=== PATIENT | female | born 1950 | race Hispanic/Latino ===

== ENCOUNTER → 2019-11-14 | Outpatient (CLI) | payer MEDICARE ==
[~2019-11-14] MED LIST: AMLO10TA7 PO; ATEN100T PO; CANA300T PO; GABA-531 PO; HYDR-4060 PO; LINA1TAB PO; LOSA1TAB42 PO; RANI150C4 PO; SIMV40TA59 PO
== END | disposition home or self-care (01) ==
LOC: RAH 14:50
PROVIDERS: ATTEND Family Medicine
DX: Z12.31 Encounter for screening mammogram for malignant neoplasm of breast (principal)
CPT/HCPCS: 77067

== ENCOUNTER → 2022-06-22 | Outpatient (CLI) | payer MEDICARE ==
[~2022-06-22] MED LIST changes: +AMLO-258 PO; -AMLO10TA7 PO; +GADOTERATE MEGLUMINE 10 MMOL/20 ML VIAL IV ONE
== END | disposition home or self-care (01) ==
LOC: RAH 10:48
PROVIDERS: ATTEND Surgery
DX: R22.31 Localized swelling, mass and lump, right upper limb (principal)
CPT/HCPCS: 73223; A9575

== ENCOUNTER → 2023-10-24 | Outpatient (CLI) | payer MEDICARE ==
[~2023-10-24] MED LIST changes: -GADOTERATE MEGLUMINE 10 MMOL/20 ML VIAL IV ONE
== END | disposition home or self-care (01) ==
LOC: RAH 14:37
PROVIDERS: ATTEND Family Medicine
DX: S62.002A Unspecified fracture of navicular [scaphoid] bone of left wrist, initial encounter for closed fracture (principal); M25.532 Pain in left wrist; X58.XXXA Exposure to other specified factors, initial encounter; Y93.89 Activity, other specified; Y92.89 Other specified places as the place of occurrence of the external cause; Y99.8 Other external cause status
CPT/HCPCS: 73200

== ENCOUNTER 2025-05-07 19:13 | Emergency (ER) | payer MEDICARE ==
[~2025-05-07] VITALS: Ht 154.9 cm; Wt 70.8 kg
--- NOTE | 2025-05-07 19:58 | EKG ---
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
[2025-05-07 20:05] LABS: IMMATURE GRANULOCYTE ABSOLUTE 0.03 K/uL (0-1); NUCLEATED RED BLOOD CELLS 0.0 % (0.0-0.19); PLATELET COUNT (AUTO) 136 K/uL (130-400); RED BLOOD CELL COUNT(AUTO) 4.14 MIL/uL (4.00-5.50); RED CELL DISTRIBUTION WIDTH 14.6 % (11.0-15.5); WHITE BLOOD COUNT (AUTO) 10.0 K/uL (4.8-10.8)
[2025-05-07 20:16] LABS: CREATININE 0.9 mg/dL (0.5-1.0); GLOMERULAR FILTR. RATE CALC 68.0 mL/min (>90); GLUCOSE,RANDOM 174.0 mg/dL (70-105); SODIUM SERUM 143.0 mmol/L (136-145); UREA NITROGEN, BLOOD 23.0 mg/dL (7-18)
[2025-05-07 20:33] LABS: ADD UA MICROSCOPIC YES; APPEARANCE,URINE CLEAR (CLEAR); GLUCOSE, URINE (UA) >=1000 mg/dL (NEGATIVE); LEUKOCYTE ESTERASE ,URINE NEGATIVE Leu/uL (NEGATIVE); NITRATE,URINE NEGATIVE (NEGATIVE); OCCULT BLOOD,URINE NEGATIVE (NEGATIVE)
[2025-05-07 20:35] LABS: SQUAMOUS EPITHELIAL CELL,UR RARE /HPF (0-2)
--- NOTE | 2025-05-07 21:10 | HMCIMG ---
EXAM: CR Chest, 1 View. CLINICAL HISTORY: rib pain left COMPARISON: None provided. FINDINGS: LUNGS: Mild left lower lobe airspace disease is concerning for an infectious and/or inflammatory process. PLEURAL SPACES: No pleural effusion or pneumothorax. MEDIASTINUM: The cardiomediastinal silhouette is within normal limits. BONES: No acute osseous abnormality. IMPRESSION: 1. Left lower lobe airspace disease, concerning for pneumonia/inflammatory process. /[place]
--- NOTE | 2025-05-07 21:22 | ERN ---
General Chief Complaint: Mechanical Fall Stated Complaint: FALL Time Seen by MD: 19:32 Source: patient History of Present Illness Initial Comments 74-year-old female who has a history of diabetes type 2, hypertension and hyperlipidemia comes in after a fall approximately 4 hours ago. She has obvious bruising on her left forehead left hand right wrist and left wrist. She also takes aspirin. The swelling in her left forehead has been increasing in size and she is here to have it evaluated. Patient states that she did not black out she had an diet experience vertigo she did not experience lightheadedness she was simply putting her belongings down on a table when suddenly she turned and fell. She has no history of loss of consciousness or seizures. She did fall a year ago when she tripped on a brick. Allergies: Coded Allergies: Penicillins (Unverified Allergy, Unknown, SEIZURES, 12/31/14) Uncoded Allergies: MANGOS (Allergy, Unknown, 12/31/14) Home Meds Reported Medications Linagliptin/Metformin HCl (Jentadueto 2.5 mg-500 mg Tab) 1 Each Tablet, 1 EACH PO BIDAC, TAB 15 Hydrocodone/Acetaminophen (Hydrocodon-Acetaminophen 5-325) 1 Each Tablet, 1 EACH PO AD PRN for PAIN, TAB 12/31/14 Gabapentin (Gabapentin) 300 Mg Capsule, 300 MG PO TID, CAP 12/31/14 Atenolol (Atenolol) 100 Mg Tablet, 100 MG PO AM, TAB 15 Ranitidine HCl (Ranitidine HCl) 150 Mg Capsule, 150 MG PO BID, CAP 15 Simvastatin (ZOCOR) 40 Mg Tablet, 40 MG PO HS, TAB 15 Amlodipine Besylate (Amlodipine Besylate) 10 Mg Tablet, 10 MG PO AM, TAB 15 Canagliflozin (Invokana) 300 Mg Tablet, 300 MG PO ACBKFST, TAB 15 Losartan/Hydrochlorothiazide (Losartan-Hctz 100-12.5 mg Tab) 1 Each Tablet, 1 EACH PO DAILY, TAB 12/31/14 Past Medical History Past Medical History: Diabetes-Type II, High Cholesterol, Hypertension Past Surgical History: Cholecystectomy, Surgical History Other: TUBAL LIGATION Constitutional: (-) chills, (-) diaphoresis, (-) fever, (-) malaise, (-) weakness, (-) other documentation EENTM: (-) eye pain, (-) blurred vision, (-) tearing, (-) double vision, (-) ear pain, (-) ear discharge, (-) nose pain, (-) nose congestion, (-) throat pain, (-) Throat swelling, (-) mouth pain, (-) tooth pain, (-) mouth swelling, (-) other documentation Respiratory: (-) cough, (-) orthopnea, (-) short of breath, (-) stridor, (-) wheezing, (-) other documentation Cardiovascular: (+) chest pain Gastrointestinal/Abdominal: (-) nausea, (-) vomiting, (-) diarrhea, (-) abdominal pain, (-) abdominal distention, (-) constipation, (-) rectal bleeding, (-) dark stool/melena, (-) other documentation Musculoskeletal: (-) Neck pain, (-) back pain, (-) Flank Pain, (-) joint pain, (-) joint swelling, (-) muscle pain, (-) muscle stiffness, (-) gout, (-) other documentation Skin: (+) contusion Physical Exam General Appearance: (+) no apparent distress Orientation: (+) alert, (+) oriented x 3 Head/Face Trauma: Yes Face Comment Left superior lateral hematoma. Eye: bilateral eye normal inspection, bilateral eye PERRL, bilateral eye EOMI Ear, Nose, Throat: (+) hearing grossly normal, (+) normal ENT inspection, (+) moist mucous membraine Neck: (+) normal inspection, (+) full range of motion, (+) non-tender Heart: (+) regular, (+) no gallop Vascular: (+) no edema, (+) normal peripheral pulse Gastrointestinal: (+) soft, (+) non-tender, (+) bowel sound present Extremities Comment Patient has a hematoma on distal left forearm and left thenar eminence. Patient has a right wrist hematoma. Good distal cap refill. Results Laboratory and Microbiology Lab and Micro Result Laboratory Tests Test 05/07/25 19:41 05/07/25 19:54 Urine Color YELLOW (YELLOW) Urine Appearance CLEAR (CLEAR) Urine pH 5.5 (5.0-8.0) Urine Specific [place] 1.038 (1.001-1.031) Urine Protein 10 mg/dL (NEGATIVE) H Urine Glucose (UA) >=1000 mg/dL (NEGATIVE) H Urine Ketones 10 mg/dL (NEGATIVE) H Urine Occult Blood NEGATIVE (NEGATIVE) Urine Nitrate NEGATIVE (NEGATIVE) Urine Bilirubin NEGATIVE mg/dL (NEGATIVE) Urine Urobilinogen 0.2 mg/dL (0.2-1.0) Urine Leukocyte Esterase NEGATIVE [place]/uL Urine RBC 0-1 /HPF (0-1) Urine WBC 2-5 /HPF (0-1) H Urine Squamous Epithelial Cells RARE /HPF (0-2) Urine Bacteria None /HPF (None Seen) Urine Hyaline Casts 2-5 /LPF (0-1 /LPF) H White Blood Count 10.0 K/uL (4.8-10.8) Red Blood Count 4.14 MIL/uL (4.00-5.50) Hemoglobin 12.5 g/dL (12.0-16.0) Hematocrit 38.7 % (36-48) Mean Corpuscular Volume 93.5 fL (79-99) Mean Corpuscular Hemoglobin 30.2 pg (27.0-33.0) Mean Corpuscular Hemoglobin Concent 32.3 g/dL (32.0-36.0) Red Cell Distribution Width 14.6 % (11.0-15.5) Platelet Count 136 K/uL (130-400) Mean Platelet Volume 12.3 fL (7.5-10.5) H Immature Granulocyte % (Auto) 0.3 % (0-1) Neutrophils (%) (Auto) 66.3 % (40.0-77.0) Lymphocytes (%) (Auto) 21.9 % (21.0-51.0) Monocytes (%) (Auto) 9.2 % (3.0-13.0) Eosinophils (%) (Auto) 2.0 % (0.0-8.0) Basophils (%) (Auto) 0.3 % (0.0-5.0) Neutrophils # (Auto) 6.6 K/uL (1.8-7.7) Lymphocytes # (Auto) 2.2 K/uL (1.0-4.8) Monocytes # (Auto) 0.9 K/uL (0.1-1.0) Eosinophils # (Auto) 0.20 K/uL (0.00-0.70) Basophils # (Auto) 0.03 K/uL (0.00-0.20) Absolute Immature Granulocyte (auto 0.03 K/uL (0-1) Nucleated Red Blood Cells 0.0 % (0.0-0.19) Sodium Level 143 mmol/L (136-145) Potassium Level 3.9 mmol/L (3.5-5.1) Chloride Level 105 mmol/L (101-111) Carbon Dioxide Level 25 mmol/L (21-32) Blood Urea Nitrogen 23 mg/dL (7-18) H Creatinine 0.9 mg/dL (0.5-1.0) Glomerular Filtration Rate Calc 68 mL/min (>90) Random Glucose 174 mg/dL (70-105) H Total Calcium 9.8 mg/dL (8.5-10.1) Troponin I High Sensitivity < 4 ng/L (4-50) L MDM MDM: Differential diagnosis: Simple hematomas while on aspirin, occult fractures, occult head bleed. Cause for the fall could be a stroke, and MS, dehydration, vertigo, Rationale: Tests considered and ordered secondary to shared decision making include: Previous outside records reviewed: Old ER visits. Risk of complication and/or morbidity or mortality of patient management: None Medications-Per medication reconciliation Need for hospitalization: Patient does meet criteria for hospitalization. Need for emergency major/minor surgery: No There are no social concerns with this patient. Prescription drug management Prescriptions will include symptomatic care Patient's prior external medical records from other ER visits were reviewed by me as indicated. Prior testing and results from previous visits were reviewed. Prior tests were taken into account with medical decision making and resource utilization, independent historian/historians were used to obtain complete medical history. I independently interpreted the test that were performed, results were reviewed by me and considered findings on radiology if ordered. I ordered plain films of the patient's bilateral wrists and chest as well as her head. CT scan of the chest was read as negative by Radiology. CT scan of the left wrist was concerned about a small possible fracture of the distal radius and also small possible nondisplaced rib fractures on five and six. I ordered CT scans of those areas and per my view they are negative. I called the radiology department for a final review of those images and they stated that they did not receive them. I called the radiology department here and they said that they sent the films and that there communication software showed a successful completion of that communication. At this point the patient has been waiting 3 hours for an official read on her films. I feel comfortable with my reads. I will discharge the patient home. I explained to them that they can call medical records tomorrow for the final read. I will also give the patient some pain medications. ED Course Orders Procedure Category Date Status Time Ct Head/Brain W/O CT 05/07/25 Resulted Contrast 19:46 Chest 1vw RAD 05/07/25 Resulted 19:46 Cbc With Differential LAB 05/07/25 Complete 19:46 Basic Metabolic Panel LAB 05/07/25 Complete 19:46 Urinalysis Profile LAB 05/07/25 Complete 19:46 12 Lead Ekg Tracing- EKG 05/07/25 Complete Technical 19:46 Troponin I High LAB 05/07/25 Complete Sensitivity 19:46 Wrist Comp 3+Vws Rt RAD 05/07/25 Resulted 20:50 Ribs Unilat 2v Lt RAD 05/07/25 Resulted 20:50 Wrist Comp 3+Vws Lt RAD 05/07/25 Resulted 20:50 Ct Upper Ext W/O CT 05/07/25 Taken Contrast 22:49 Ct Chest W/O Contrast CT 05/07/25 Taken 22:52 Vital Signs Date Time Temp Pulse Resp B/P (MAP) Pulse Ox O2 Delivery O2 Flow Rate FiO2 05/07/25 19:45 99.7 82 20 126/46 98 Room Air* 0 21 05/07/25 19:26 99.7 82 20 126/46 98 Room Air DX & DISP Disposition: Discharge Departure Impression: Primary Impression: Ground-level fall Condition: Stable Scripts Ketorolac Tromethamine (Toradol) 10 Mg Tab 1 TAB PO Q6HPRN PRN for pain for 5 Days, #20 TAB 0 Refills Prov: LINDA VARELA MD 05/08/25 Additional Instructions: Our scans have shown no broken bones in any of the areas where you have swelling and bruising from your fall. I do not know the cause of your fall. It could have been simple dehydration or a vasovagal response. We have no evidence of a heart attack in her labs. No evidence of a stroke by CT scan four by physical exam. If you have frequent falls please call your primary care doctor and see him. You may need further neurologic workup. Please drink plenty of fluids to avoid dehydration. Please return if your pain gets worse. Referrals: THOMAS KEENE MD (PCP) LINDA VARELA MD May 07, 2025 21:22
--- NOTE | 2025-05-07 22:03 | HMCIMG ---
EXAM: CR Left Ribs, 5 views. CLINICAL HISTORY: Fall. COMPARISON: None provided. FINDINGS: Questionable nondisplaced acute fracture in the anterolateral aspect of the left 5th and 6th ribs. Osteopenia and degenerative osseous changes. Degenerative costochondral calcifications. The lungs are clear. No pneumothorax or pleural effusion. Unremarkable soft tissues. IMPRESSION: Questionable nondisplaced acute fracture in the anterolateral aspect of the left 5th and 6th ribs. Recommend CT chest for an optimal evaluation. /[place]
--- NOTE | 2025-05-07 22:18 | HMCIMG ---
EXAM: CR Right Wrist, 3 views. CLINICAL HISTORY: Fall. COMPARISON: None provided. FINDINGS: No acute fracture or aggressive appearing osseous lesion. The carpal bones demonstrate normal alignment. The joint spaces are maintained. Mild osteopenia. The soft tissues are unremarkable. IMPRESSION: No acute bony abnormality is evident. /[place]
--- NOTE | 2025-05-07 22:20 | HMCIMG ---
EXAM: CR Left Wrist, 3 views. CLINICAL HISTORY: Fall. COMPARISON: None provided. FINDINGS: There is a focal cortical irregularity in the ventral aspect of the distal end of the radius, concerning a nondisplaced fracture. Diffuse soft tissue swelling around the wrist. The carpal bones demonstrate normal alignment. Unremarkable joint spaces. Mild osteopenia. IMPRESSION: There is a focal cortical irregularity in the ventral aspect of the distal end of the radius, concerning a nondisplaced fracture. Recommend a CT scan of the left wrist for an optimal evaluation. Diffuse soft tissue swelling around the wrist. /[place]
--- NOTE | 2025-05-07 22:22 | HMCIMG ---
EXAM: Non-contrast CT examination of the Brain CLINICAL HISTORY: History of fall. TECHNIQUE: Thin collimated axial CT images of the brain were obtained with sagittal and coronal reformatted images also submitted. CT scan is done according to ALARA (As Low as Reasonably Achievable). CONTRAST USED: None. COMPARISON: None FINDINGS: Mild age-related degenerative change with prominent sulci and basilar cisterns. Subtle hypoattenuation in the deep periventricular white matter and in the small radiata sequela of chronic microvascular ischemic disease. No acute intracranial abnormality is present. No acute cortical infarction, hemorrhage, mass, or mass effect. No hydrocephalus or abnormal extra-axial fluid collections. The posterior fossa is unremarkable. The skull base and calvarium are intact. Soft tissue hematoma overlying the frontal bone on the left side. The included portions of the paranasal sinuses and mastoid air cells are clear. IMPRESSION: No acute intracranial abnormality is present. Sclap hematoma overlying the frontal bone on the left side. No evidence of calvarial fracture or extra-axial collection. /[place]
[2025-05-08] MEDS ORDERED: KETO10 PO (00:19)
[2025-05-08 00:30] VITALS: BP 128/50; PULSE 79; RESP 19; TEMP 98.8; O2SAT 98
--- NOTE | 2025-05-08 00:47 | HMCIMG ---
EXAM: CT Chest without IV contrast CLINICAL HISTORY: Suspicion of left fifth and sixth rib fractures on radiograph. TECHNIQUE: Thin-section axial CT through the thorax without intravenous contrast. Coronal, sagittal, and MIP reformation were generated on the same workstation. CT scan is done according to ALARA (As Low as Reasonably Achievable). CONTRAST USED: None. COMPARISON: Radiograph of the left hip from the same date. FINDINGS: No acute infiltrate or pulmonary mass. Irregular reticular abnormalities in the bilateral lung workman with subpleural predominance. No pulmonary nodules. No pleural effusions. No pericardial effusion. Mild cardiomegaly. Coronary vessels and the intrathoracic aorta reveal scattered atherosclerotic wall calcifications. No axillary, supraclavicular, or mediastinal lymphadenopathy. No focal thyroid abnormality. Limited views of the upper abdomen demonstrate no abnormality. No acute or suspicious osseous abnormality. Multilevel thoracic spondylosis. IMPRESSION: No acute rib fracture is evident on CT scan, as suspected on previous radiographs. No acute cardiopulmonary process in the chest. Irregular reticular abnormalities in the bilateral lung workman with subpleural predominance, suggesting interstitial lung disease. /[place]
--- NOTE | 2025-05-08 01:03 | HMCIMG ---
EXAM: CT left upper extremity, without IV contrast. CLINICAL HISTORY: Distal radial fracture. TECHNIQUE: Axial images were acquired through the left shoulder without IV contrast. Reformatted images were reviewed. COMPARISON: Prior CT left upper extremity dated 10/25/23. Radiograph from the same date. FINDINGS: BONES: Mild diffuse osteopenia. No acute fracture or aggressively appearing osseous lesion. Complete interval healing of the previously noted distal radial fracture. JOINTS: No dislocation. The joint spaces are normal. SOFT TISSUES: Subcutaneous soft tissue edema and hemorrhage at the ventral aspect of the distal forearm and wrist. IMPRESSION: No acute fracture or dislocation is evident at present. Complete interval healing of the previously noted distal radial fracture. Subcutaneous soft tissue edema and hemorrhage at the ventral aspect of the distal forearm and wrist. Irregularity around the distal radius on the same day radiograph could be secondary to the old healed distal radial fracture. No acute fracture is evident at present. /[place]
== END 2025-05-08 00:35 | disposition home or self-care (01) ==
LOC: EDH 19:13
DX: S52.502A Unspecified fracture of the lower end of left radius, initial encounter for closed fracture (principal); S22.32XA Fracture of one rib, left side, initial encounter for closed fracture; E11.9 Type 2 diabetes mellitus without complications; E78.00 Pure hypercholesterolemia, unspecified; I10 Essential (primary) hypertension; Z79.82 Long term (current) use of aspirin; Z79.899 Other long term (current) drug therapy; Z88.0 Allergy status to penicillin; Z90.49 Acquired absence of other specified parts of digestive tract; Z98.51 Tubal ligation status; W18.39XA Other fall on same level, initial encounter; Y93.89 Activity, other specified; Y92.89 Other specified places as the place of occurrence of the external cause; Y99.8 Other external cause status
CPT/HCPCS: 99285; 70450; 71045; 84484; 80048; 85025; 81001; 36415; 71100; 73110; 71250; 73200; 93005; 96372; J1885